=== PATIENT | male | born 1980 | race Caucasian/White ===

== ENCOUNTER 2019-09-03 17:28 | Emergency (ER) | payer SELFPAY ==
[~2019-09-03] VITALS: Ht 172.7 cm; Wt 88.5 kg
[2019-09-03 17:41] VITALS: Ht 172.7 cm; Wt 88.5 kg
[2019-09-03 20:16] VITALS: BP 119/74
== END 2019-09-03 20:16 | disposition home or self-care (01) ==
LOC: ED 17:28
DX: S61.217A Laceration without foreign body of left little finger without damage to nail, initial encounter (principal); F17.210 Nicotine dependence, cigarettes, uncomplicated; W22.03XA Walked into furniture, initial encounter; Y93.89 Activity, other specified; Y92.89 Other specified places as the place of occurrence of the external cause; Y99.8 Other external cause status
CPT/HCPCS: 90715; J2001